=== PATIENT | female | born 1950 | race African-American/Black ===

== ENCOUNTER 2018-03-09 08:58 | Outpatient (CLI) | payer MEDICARE, OTHER | END 2018-03-09 08:59 | disposition home or self-care (01) | LOC: BICMAMMO 08:58 | DX: Z12.31 Encounter for screening mammogram for malignant neoplasm of breast (principal); Z80.3 Family history of malignant neoplasm of breast | CPT/HCPCS: 77063; 77067 ==

== ENCOUNTER 2019-03-10 08:15 | Outpatient (CLI) | payer MEDICARE, OTHER ==
--- NOTE | 2019-03-10 08:54 | MMO ---
Bilateral MAMMO Bilat Screen [facility]DI[facility]. CLINICAL HISTORY: Patient is 68 years old and is seen for screening. The patient has the following family history of breast cancer: sister. The patient has no personal history of cancer. VIEWS: The views performed were: bilateral craniocaudal with tomosynthesis and bilateral mediolateral oblique with tomosynthesis. FILMS COMPARED: The present examination has been compared to prior imaging studies performed at [facility] on 05/24/2014, 02/07/2016, 03/05/2017 and 03/09/2018. This study has been interpreted with the assistance of computer-aided detection. MAMMOGRAM FINDINGS: The breasts are heterogeneously dense, which could obscure a lesion on mammography. There are stable benign appearing calcifications seen in both breasts. There are no suspicious masses, suspicious calcifications, or new areas of architectural distortion. IMPRESSION: THERE IS NO MAMMOGRAPHIC EVIDENCE OF MALIGNANCY. A ROUTINE FOLLOW-UP MAMMOGRAM IN 1 YEAR IS RECOMMENDED. THE RESULTS OF THIS EXAM WERE SENT TO THE PATIENT. ACR BI-RADS Category 2 - Benign finding MAMMOGRAPHY NOTE: 1. A negative mammogram report should not delay a biopsy if a dominant of clinically suspicious mass is present. 2. Approximately 10% to 15% of breast cancers are not detected by mammography. 3. Adenosis and dense breasts may obscure an underlying neoplasm. Reported by: ELIEZER GOLDEN MD Electonically Signed: [id number]
== END 2019-03-10 08:16 | disposition home or self-care (01) ==
LOC: BICMAMMO 08:15
DX: Z12.31 Encounter for screening mammogram for malignant neoplasm of breast (principal); Z80.3 Family history of malignant neoplasm of breast
CPT/HCPCS: 77063; 77067

== ENCOUNTER 2019-04-23 08:09 | Outpatient (CLI) | payer MEDICARE, OTHER ==
--- NOTE | 2019-04-23 09:22 | RAD ---
EXAM: Two views chest PROVIDED CLINICAL HISTORY: Wheezing COMPARISON: None FINDINGS: Cardiac silhouette and pulmonary vasculature are within normal limits. The lungs are clear. The osse ous structures have a normal appearance. IMPRESSION: No acute cardiopulmonary process.
--- NOTE | 2019-04-23 10:23 | BD ---
BONE DENSITOMETRY USING DEXA: Date: 04/23/2019 HISTORY: Postmenopausal screening for osteoporosis. FINDINGS: Lumbar Spine: BMD (g/cm2) L1 1.056 T-Score: -0.6 Z-Score: 1.7 L2 1.145 T-Score: 1.1 Z-Score: 2.3 L3 1.142 T-Score: 0.5 Z-Score: 1.9 L4 1.112 T-Score: 0.5 Z-Score: 1.8 L1-L4 1.116 T-Score: 0.6 Z-Score: 1.9 Femoral Neck: 0.746 T-Score: -0.9 Z-Score: -0.1 Total Femur: 0.949 T-Score: -0.1 Z-Score: 0.6 IMPRESSION: Normal bone mineral density. POS: TPC
== END 2019-04-23 08:10 | disposition home or self-care (01) ==
LOC: BICMAMMO 08:09
PROVIDERS: ATTEND Internal Medicine Rheumatology
DX: Z13.820 Encounter for screening for osteoporosis (principal); M25.50 Pain in unspecified joint; R06.2 Wheezing
CPT/HCPCS: 71046; 77080

== ENCOUNTER 2019-05-06 09:12 | Day surgery (SDC) | payer MEDICARE, OTHER ==
[2019-05-05 11:46] VITALS: BMI 37.8
[~2019-05-06 09:12] MED LIST: [UNRECOGNIZED DRUG - OTHER] FS SCH; [UNRECOGNIZED DRUG - OTHER] FS SCH
[2019-05-06] MEDS ORDERED: Cyclopentolate 1% Opth Drop 2 ML BOT ONE (09:51)
[2019-05-06] MEDS ORDERED: Phenylephrine 2.5% Ophth Soln 5 ML BOT ONE (09:51)
[2019-05-06] MEDS ORDERED: Lidocaine 4% PF 5 ML AMP ONE (09:52)
[2019-05-06] MEDS ORDERED: PROPOFOL 200 MG/20 ML VIAL ONE (09:52)
[2019-05-06] MEDS ORDERED: Bupivacaine PF 0.75% SDV 10 ML ONE (09:52)
[2019-05-06] MEDS ORDERED: Fentanyl 100 MCG/2 ML VIAL ONE (12:15)
[2019-05-06] MEDS ORDERED: Midazolam HCl 2 mg/2 ml Vial ONE (12:15)
--- NOTE | 2019-05-07 11:10 | OP ---
DATE OF PROCEDURE: 05/06/2019 PREOPERATIVE DIAGNOSIS: Corneal opacification, band keratopathy, left eye. POSTOPERATIVE DIAGNOSIS: Corneal opacification, band keratopathy, left eye. PROCEDURE: Corneal chelation and removal of band keratopathy, left eye. ANESTHESIA: Local with monitored anesthesia care. PROCEDURE IN DETAIL: The patient was identified in the preoperative holding area. Appropriate informed consent for the planned surgical procedure on the left eye had been obtained. The patient was transported to the operative suite. Appropriate cardiopulmonary monitoring was established. Local anesthesia obtained using retrobulbar block. The patient was prepped and draped in usual sterile manner for ophthalmic surgery in the left eye. Lid speculum was placed in the left eye. Using [place] blade, the central corneal epithelium was removed. Trephine was used to demarcate 8 mm in diameter in the center of the cornea and 3% disodium EDTA was dripped onto the cornea using the corneal trephine as well. This was left in place for 3-minute intervals, after which, the cornea was rinsed and residual calcium was rubbed with a cotton. This was repeated x6 until all calcium deposits were noted to be gone. Drop of ciprofloxacin antibiotic was placed on the eye and a bandage contact lens was placed. The eye was patched and shielded. The patient was taken to the postoperative recovery unit in good condition having suffered no immediate perioperative complications. The patient was instructed to keep patch and shield on and followup appointment with Dr. Kohler. Job ID: [id number]
== END 2019-05-06 14:05 | disposition home or self-care (01) ==
LOC: SDC 09:12
PROVIDERS: ATTEND Ophthalmology Retina Specialist
PROC: 08Q9XZZ Repair Left Cornea, External Approach (ICD-10-PCS; principal; 2019-05-06)
DX: H17.12 Central corneal opacity, left eye (principal); H18.422 Band keratopathy, left eye; I10 Essential (primary) hypertension; J45.909 Unspecified asthma, uncomplicated; M06.9 Rheumatoid arthritis, unspecified; E66.9 Obesity, unspecified; Z68.37 Body mass index [BMI] 37.0-37.9, adult; Z79.52 Long term (current) use of systemic steroids; Z79.899 Other long term (current) drug therapy
CPT/HCPCS: J2001; J2250; J2704; J3010; J3490

== ENCOUNTER 2020-03-13 10:34 | Outpatient (CLI) | payer MEDICARE, OTHER ==
--- NOTE | 2020-03-13 11:14 | MMO ---
Bilateral MAMMO Bilat Screen [facility]DI+TIM. CLINICAL HISTORY: Patient is 69 years old and is seen for screening. The patient has the following family history of breast cancer: sister. The patient has no personal history of cancer. VIEWS: The views performed were: bilateral craniocaudal with tomosynthesis and bilateral mediolateral oblique with tomosynthesis. FILMS COMPARED: The present examination has been compared to prior imaging studies performed at [facility] on 02/07/2016, 03/05/2017, 03/09/2018 and 03/10/2019. This study has been interpreted with the assistance of computer-aided detection. MAMMOGRAM FINDINGS: The breasts are heterogeneously dense, which could obscure a lesion on mammography. There are no suspicious masses, suspicious calcifications, or new areas of architectural distortion. IMPRESSION: THERE IS NO MAMMOGRAPHIC EVIDENCE OF MALIGNANCY. A ROUTINE FOLLOW-UP MAMMOGRAM IN 1 YEAR IS RECOMMENDED. THE RESULTS OF THIS EXAM WERE SENT TO THE PATIENT. ACR BI-RADS Category 1 - Negative MAMMOGRAPHY NOTE: 1. A negative mammogram report should not delay a biopsy if a dominant of clinically suspicious mass is present. 2. Approximately 10% to 15% of breast cancers are not detected by mammography. 3. Adenosis and dense breasts may obscure an underlying neoplasm. Reported by: ESTRELLA GUERRIER MD Electonically Signed: [id number]
== END 2020-03-13 10:35 | disposition home or self-care (01) ==
LOC: BICMAMMO 10:34
PROVIDERS: ATTEND Family Medicine
DX: Z12.31 Encounter for screening mammogram for malignant neoplasm of breast (principal); Z80.3 Family history of malignant neoplasm of breast
CPT/HCPCS: 77063; 77067

== ENCOUNTER 2021-03-21 11:08 | Outpatient (CLI) | payer MEDICARE, OTHER | END 2021-03-21 11:09 | disposition home or self-care (01) | LOC: BICMAMMO 11:08 | PROVIDERS: ATTEND Family Medicine | DX: Z12.31 Encounter for screening mammogram for malignant neoplasm of breast (principal); Z80.3 Family history of malignant neoplasm of breast | CPT/HCPCS: 77063; 77067 ==

== ENCOUNTER 2024-12-08 10:03 | Outpatient (CLI) | payer MEDICARE, OTHER | END 2024-12-08 10:04 | disposition home or self-care (01) | LOC: BICMAMMO 10:03 | PROVIDERS: ATTEND Family Medicine | DX: Z12.31 Encounter for screening mammogram for malignant neoplasm of breast (principal); Z80.3 Family history of malignant neoplasm of breast | CPT/HCPCS: 77063; 77067 ==